=== PATIENT | female | born 1955 | race Caucasian/White ===

== ENCOUNTER 2018-01-10 12:27 | Inpatient (IN) ==
[2018-01-10 13:00] LABS: Bilirubin,Urine Negative (Negative); Blood,Urine Moderate (Negative); Clarity,Urine Cloudy (Clear); Color,Urine Yellow (Yellow); Glucose,Urine (UA) Normal (Normal); Ketones,Urine Trace mg/dL (Negative); Leukocyte Esterase,Urine Large (Negative); Nitrite,Urine Negative (Negative); Protein,Urine 100 mg/dL (Neg-Trace); Urobilinogen,Urine Normal (Normal)
[2018-01-10 13:02] LABS: Hyaline Casts,Urine None Seen per lpf (None-Few); RBC,Urine 0-3 per hpf (0-3); Squamous Epithelial Cell,Urine Many per lpf (None-Few)
[2018-01-10 13:16] LABS: Basophils # 0.1 K/mcL (0.0-0.2); Basophils % 0.3 %; Eosinophils % 0.1 %; Hematocrit 37.6 % (35.3-44.9); Hemoglobin 12.6 g/dL (11.5-15.4); Immature Granulocytes % 4.7 % (0-4); Lymphocytes # 0.3 K/mcL (0.6-4.6); Lymphocytes % 1.8 %; Mean Corpuscular HGB Conc 33.5 g/dL (31.6-35.5); Mean Corpuscular Hemoglobin 29.9 pg (28.0-33.3); Mean Corpuscular Volume 89.1 fL (83.0-100.0); Mean Platelet Volume 10.1 fL (9.4-12.4); Monocytes # 0.4 K/mcL (0.0-1.3); Monocytes % 2.3 %; Neutrophils # 16.9 K/mcL (1.6-8.9); Platelet Count 167 K/mcL (140-400); Red Blood Count 4.22 M/mcL (3.82-4.97); Red Cell Distribution Width 13.8 % (11.5-14.5); Segmented Neutrophils % 90.8 %
[2018-01-10 13:23] LABS: Bacteria,Urine Few per hpf (None-Few); WBC,Urine 30-50 per hpf (0-3)
[2018-01-10 14:08] LABS: Alanine Aminotransferase 18 Units/L (7-52); Albumin 3.9 g/dL (3.5-5.7); Albumin/Globulin Ratio 1.3 (1.1-2.2); Alkaline Phosphatase 103 Units/L (34-104); Aspartate Amino Transferase 30 Units/L (13-39); BUN/Creatinine Ratio 24 (6-26); Bilirubin,Direct 0.1 mg/dL (0.0-0.2); Bilirubin,Indirect 0.3 mg/dL (0.0-1.2); Bilirubin,Total 0.4 mg/dL (0.3-1.0); Blood Urea Nitrogen 45 mg/dL (8-23); Calcium 9.6 mg/dL (8.6-10.3); Carbon Dioxide 20 mEq/L (23-29); Chloride 99 mEq/L (98-107); Glucose 121 mg/dL (70-105); Lipase < 3 Units/L (11-82); Osmolality,Calculated 285 (280-300); Potassium 3.6 mEq/L (3.5-5.1); Sodium 131 mEq/L (136-145); Total Protein 6.9 g/dL (6.4-8.9); eGFR For African Americans 34 (> 60); eGFR For Non-African Americans 28 (> 60)
[2018-01-10] MEDS: 0.9 % Sodium Chloride 1,000 ML IVC SCH ×3 (16:48→20:21)
[2018-01-10] MEDS ORDERED: Piperacillin/Tazobactam 3.375 GM in 0.9 % Sodium Chloride Mini Bag 100 ML IVPB ONE (17:17)
--- NOTE | 2018-01-10 17:22 | Emergency Department Note ---
Disposition Clinical Impression: Ureteral stone, Acute kidney injury Sepsis Qualifiers: Sepsis type: sepsis due to unspecified organism Qualified Code(s): A41.9 - Sepsis, unspecified organism UTI (urinary tract infection) Qualifiers: Urinary tract infection type: site unspecified Hematuria presence: with hematuria Qualified Code(s): N39.0 - Urinary tract infection, site not specified Disposition: Admitted As Inpatient Condition: Fair Time of Disposition: 17:35 General Adult HPI - General Chief complaint: ED General Medical Stated complaint: Flank Pain Time Seen by Provider: 01/10/18 16:09 Source: patient Limitations: no limitations Nursing Notes Reviewed: Yes Vital Signs Reviewed: Yes - History of Present Illness HPI Narrative: Patient is a 62-year-old female that presents the emergency department with right-sided flank and abdominal pain. She states that this is been ongoing for the past 3 days. She states that she has had a history of kidney stones and she is 25 years old and has had a recent CAT scan that showed stones within her kidney. Patient states that the pain is been progressively getting worse. Patient reports that she has had a fever as high as 102. Reports that she has taken Tylenol. Patient does report that she feels like she has not been urinating as well. Patient states that she has had a history of kidney stones when she was younger and this feels just like when she has had a kidney stone in the past. Pain Scale: 2 - Related Data Home Medications Medication Instructions Recorded Confirmed Pravastatin Sodium [Pravachol] 20 mg PO HS 01/10/18 01/10/18 Sulfamethoxazole/Trimeth DS 1 tab PO BID 01/10/18 01/10/18 [Bactrim Ds] Allergies Allergy/AdvReac Type Severity Reaction Status Date / Time No Known Allergies Allergy Verified 01/10/18 17:32 All systems ED: reviewed and negative except as stated. Constitutional: Reports: fever Cardiovascular: Denies: chest pain Respiratory: Denies: dyspnea Gastrointestinal: Reports: abdominal pain, nausea Genitourinary: Reports: other (Decreased frequency). Denies: urgency, dysuria Musculoskeletal: Reports: back pain Past Medical History - Past Medical History Medical history: Reports: kidney stones Psychiatric history: Reports: no psych history - Social History Smoking Status: Current every day smoker Smokeless Tobacco Status: No Alcohol use: Reports: none Drug use: Reports: none Physical Exam - General Limitations: no limitations General appearance: alert, in no apparent distress - Head Head exam: atraumatic, normocephalic - Eye Eye exam: Present: normal appearance, EOMI - Neck Neck exam: Present: normal inspection, full ROM, trachea midline - Respiratory Respiratory exam: Present: normal lung sounds bilaterally. Absent: respiratory distress, wheezes - Cardiovascular Cardiovascular exam: Present: normal rhythm, tachycardia, normal heart sounds, + S1, +S2 - Abdominal Exam Abdominal exam: Present: soft, tenderness (Lower abdominal tenderness.), normal bowel sounds - Neurological Exam Neurological exam: Present: alert, oriented X3 - Psychiatric Psychiatric exam: Present: normal affect, normal mood - Skin Skin exam: Present: warm, dry, intact Course - Reevaluation(s) Reevaluation #1: I called and spoke with Dr. Walker the on-call urologist and he stated that he would call and talk to the OR to see if this patient could potentially go to the OR tonight for possible stenting Time: 17:22 Vital Signs Temperature 98.4 F 01/10/18 12:33 Pulse Rate 102 01/10/18 12:33 Respiratory Rate 18 01/10/18 12:33 Blood Pressure 92/63 01/10/18 12:33 O2 Sat by Pulse Oximetry 94 01/10/18 12:33 Temperature 98.4 F 01/10/18 12:33 Pulse Rate 102 01/10/18 12:33 Respiratory Rate 18 01/10/18 12:33 Blood Pressure 92/63 01/10/18 12:33 O2 Sat by Pulse Oximetry 94 01/10/18 12:33 Oxygen Delivery Oxygen Delivery Room Air Medical Decision Making - [facility] Narrative Medical decision making narrative: Due to the patient presenting with right-sided abdominal pain and flank pain with a history of kidney stones. We will obtain a CBC, BMP and blood cultures, urinalysis, urine cultures, lactic acid. The patient's CT scan showed a 9 mm stone in the right ureter. I called and spoke with Dr. Walker the on-call urologist and he stated that he would come in and see the patient here in the emergency Department likely take her to the OR for stent placement. The patient does have an elevated white count, was tachycardic and borderline hypotensive. Based on the patient's vital sign laboratory testing and having a source of infection at that this patient meets sepsis criteria and has been given a 30 mL/kg bolus and started on IV antibiotics. Patient will need to be admitted to the hospital for further evaluation and management. Called and spoke with the admitting hospitalist and they have accepted the patient to their service. The patient be admitted to the hospital after the patient goes to the OR with Dr. Walker. - Lab Data Lab results reviewed: Yes I reviewed the patient's lab results. Result diagrams: 01/10/18 12:56 01/10/18 12:56 Lab Results 01/10/18 01/10/18 01/10/18 Range/Units 12:53 12:56 12:56 WBC 18.6 H (4.3-11.1) K/mcL RBC 4.22 (3.82-4.97) M/mcL Hgb 12.6 (11.5-15.4) g/dL Hct 37.6 (35.3-44.9) % MCV 89.1 (83.0-100.0) fL MCH 29.9 (28.0-33.3) pg MCHC 33.5 (31.6-35.5) g/dL RDW 13.8 (11.5-14.5) % Plt Count 167 (140-400) K/mcL MPV 10.1 (9.4-12.4) fL Immature Gran % 4.7 H (0-4) % Seg Neutrophils % 90.8 % Lymphocytes % 1.8 % Monocytes % 2.3 % Eosinophils % 0.1 % Basophils % 0.3 % Neutrophils # 16.9 H (1.6-8.9) K/mcL Lymphocytes # 0.3 L (0.6-4.6) K/mcL Monocytes # 0.4 (0.0-1.3) K/mcL Eosinophils # 0.0 (0.0-0.6) K/mcL Basophils # 0.1 (0.0-0.2) K/mcL PT (9.4-12.1) Seconds INR Sodium 131 L (136-145) mEq/L Potassium 3.6 (3.5-5.1) mEq/L Chloride 99 (98-107) mEq/L Carbon Dioxide 20 L (23-29) mEq/L BUN 45 H (8-23) mg/dL Creatinine 1.84 H (0.60-1.20) mg/dL Est GFR ( Amer) 34 L (> 60) Est GFR (Non-Af Amer) 28 L (> 60) BUN/Creatinine Ratio 24 (6-26) Glucose 121 H (70-105) mg/dL Calculated Osmolality 285 (280-300) Lactic Acid (0.5-2.2) mmol/L Calcium 9.6 (8.6-10.3) mg/dL Total Bilirubin 0.4 (0.3-1.0) mg/dL Direct Bilirubin 0.1 (0.0-0.2) mg/dL Indirect Bilirubin 0.3 (0.0-1.2) mg/dL AST 30 (13-39) Units/L ALT 18 (7-52) Units/L Alkaline Phosphatase 103 (34-104) Units/L Troponin I (< 0.04) ng/mL Serum Total Protein 6.9 (6.4-8.9) g/dL Albumin 3.9 (3.5-5.7) g/dL Globulin 3.0 (2.4-3.5) g/dL Albumin/Globulin Ratio 1.3 (1.1-2.2) Lipase < 3 L (11-82) Units/L Urine Color Yellow (Yellow) Urine Clarity Cloudy A (Clear) Urine pH 6.0 (5.0-8.0) pH Units Ur Specific [place] 1.020 (1.010-1.025) Urine Protein 100 H (Neg-Trace) mg/dL Urine Glucose (UA) Normal (Normal) mg/dL Urine Ketones Trace H (Negative) mg/dL Urine Blood Moderate H (Negative) Urine Nitrite Negative (Negative) Urine Bilirubin Negative (Negative) Urine Urobilinogen Normal (Normal) mg/dL Ur Leukocyte Esterase Large H (Negative) Urine Microscopic RBC 0-3 (0-3) per hpf Urine Microscopic WBC 30-50 H (0-3) per hpf Ur Squamous Epith Cells Many H (None-Few) per lpf Urine Bacteria Few (None-Few) per hpf Hyaline Casts None Seen (None-Few) per lpf 01/10/18 01/10/18 01/10/18 Range/Units 17:06 17:06 17:06 WBC (4.3-11.1) K/mcL RBC (3.82-4.97) M/mcL Hgb (11.5-15.4) g/dL Hct (35.3-44.9) % MCV (83.0-100.0) fL MCH (28.0-33.3) pg MCHC (31.6-35.5) g/dL RDW (11.5-14.5) % Plt Count (140-400) K/mcL MPV (9.4-12.4) fL Immature Gran % (0-4) % Seg Neutrophils % % Lymphocytes % % Monocytes % % Eosinophils % % Basophils % % Neutrophils # (1.6-8.9) K/mcL Lymphocytes # (0.6-4.6) K/mcL Monocytes # (0.0-1.3) K/mcL Eosinophils # (0.0-0.6) K/mcL Basophils # (0.0-0.2) K/mcL PT 14.3 H (9.4-12.1) Seconds INR 1.3 Sodium (136-145) mEq/L Potassium (3.5-5.1) mEq/L Chloride (98-107) mEq/L Carbon Dioxide (23-29) mEq/L BUN (8-23) mg/dL Creatinine (0.60-1.20) mg/dL Est GFR ( Amer) (> 60) Est GFR (Non-Af Amer) (> 60) BUN/Creatinine Ratio (6-26) Glucose (70-105) mg/dL Calculated Osmolality (280-300) Lactic Acid 1.0 (0.5-2.2) mmol/L Calcium (8.6-10.3) mg/dL Total Bilirubin (0.3-1.0) mg/dL Direct Bilirubin (0.0-0.2) mg/dL Indirect Bilirubin (0.0-1.2) mg/dL AST (13-39) Units/L ALT (7-52) Units/L Alkaline Phosphatase (34-104) Units/L Troponin I 0.08 H* (< 0.04) ng/mL Serum Total Protein (6.4-8.9) g/dL Albumin (3.5-5.7) g/dL Globulin (2.4-3.5) g/dL Albumin/Globulin Ratio (1.1-2.2) Lipase (11-82) Units/L Urine Color (Yellow) Urine Clarity (Clear) Urine pH (5.0-8.0) pH Units Ur Specific [place] (1.010-1.025) Urine Protein (Neg-Trace) mg/dL Urine Glucose (UA) (Normal) mg/dL Urine Ketones (Negative) mg/dL Urine Blood (Negative) Urine Nitrite (Negative) Urine Bilirubin (Negative) Urine Urobilinogen (Normal) mg/dL Ur Leukocyte Esterase (Negative) Urine Microscopic RBC (0-3) per hpf Urine Microscopic WBC (0-3) per hpf Ur Squamous Epith Cells (None-Few) per lpf Urine Bacteria (None-Few) per hpf Hyaline Casts (None-Few) per lpf - Radiology Data Radiology results reviewed: Yes I reviewed the patient's radiology results. Abdomen/Pelvis CT 01/10/18 16:14 IMPRESSION: 1. Moderate right hydronephrosis with multiple calculi measuring up to 9 mm in diameter obstructing the proximal right ureter. 2. Bilateral nonobstructing nephrolithiasis. 3. Diverticulosis. D/ / Jorge Mariee / Jorge Mariee Interpreting Provider: Jorge Mariee - EKG Data EKG #1 EKG attestation: Yes I reviewed and interpreted this EKG. EKG results narrative: EKG shows a sinus rhythm at a rate of 92 bpm, MA interval 152, QRS duration of 95, QTC of 403 with a normal axis. No evidence of STEMI noted on EKG. There is no previous EKG for comparison. Critical Care Time Critical Care Time: Yes Total Critical Care Time: 35 Attestation: The high probability of a clinically significant, sudden or life threatening deterioration of the [] system(s) required my full and direct attention, intervention and personal management. The aggregate critical care time was [35] minutes. This time is in addition to time spent performing reported procedures but includes the following: [x] Data Review and interpretation [x] Patient assessment and monitoring of vital signs [x] Documentation [x] Medication orders and management Attestation Statement - Attestation Attestation: I examined this patient and my medical decision-making was reviewed with the Resident Physician, Dr. walker. I agree with the documented findings, disposition and treatment plan as described except to the extent set forth below. Patient is 62-year-old white female presents to the emergency Department with complaints of fever associated with flank pain lower abdominal pain and bloating nausea vomiting. Patient has known history of frequent kidney stones and does see urology. Patient had no recent urologic intervention. On arrival patient with tachycardia, hypotension. Patient was maintained is alert and sepsis protocol was initiated on arrival. I agree with patient's physical exam findings as documented. Patient's lab evaluation shows elevated white count at 18.6 with left shift, patient with some mild renal insufficiency likely prerenal, and has evidence of UTI on urinalysis as well as a large right proximal ureteral stone causing moderate Olga. Patient's receiving her 30 mL/kg bolus, antibiotics and been initiated, cultures have been drawn and sent and case was discussed with urology who plans to take the patient to the OR in the next hour for stone retrieval. Patient with improved vitals after 500 mL of fluid with a heart rate of 94 blood pressure 114/85. Patient was also given pain control and antiemetics. Patient clinically improved at this time antibiotics initiated in planing to go to the OR with urology. Patient was discussed with the hospitalist who will also be involved in the care of the patient postoperatively.
[2018-01-10] MEDS ORDERED: Ondansetron 4 MG/2 ML VIAL IVP ONE (17:23)
[2018-01-10] MEDS ORDERED: *HR* FentaNYL (PF) 100 MCG/2 ML VIAL IVP ONE (17:23)
[2018-01-10 17:36] LABS: INR 1.3; Prothrombin Time 14.3 Seconds (9.4-12.1)
[2018-01-10] MEDS ORDERED: *HR* FentaNYL (PF) 100 MCG/2 ML VIAL ONE (17:36)
[2018-01-10] MEDS ORDERED: Ondansetron 4 MG/2 ML VIAL ONE (17:37)
[2018-01-10] MEDS ORDERED: *HR* Midazolam HCl 2 MG/2 ML VIAL ONE (17:37)
[2018-01-10] MEDS ORDERED: *HR* Propofol 200 MG/20 ML VIAL IVP ONE ×2 (17:37→18:06)
[2018-01-10] MEDS ORDERED: Dexamethasone 4 MG/ML VIAL ONE (17:37)
[2018-01-10] MEDS ORDERED: Lidocaine -MPF 2% 2 ML VIAL ONE (17:37)
[2018-01-10] MEDS ORDERED: Isovue-300 50 ML VIAL IVP ONE (18:00)
--- NOTE | 2018-01-10 18:07 | Anesthesia Evaluation PreOp ---
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 BRANDY on CRF, pyelonephritis,), Other ( Nausea, vomiting for the last 48 hrs) Anesthesia History: No Prior Anesthetic Complications, Past Anesthesia ( Hysterectomy) Alcohol Use: none Drug use: none Medications and Allergies Pravastatin Sodium [Pravachol] 20 mg PO HS 01/10/18 [History] Sulfamethoxazole/Trimeth DS [Bactrim Ds] 1 tab PO BID 01/10/18 [History] 3 Allergy/AdvReac Type Severity Reaction Status Date / Time No Known Allergies Allergy Verified 01/10/18 17:32 - Meds/Allergy Pre-op Review Medications Reviewed: Yes Allergies Reviewed: Yes Beta Blockers on Current Med List: No Anesthesia Results - Labs 01/10/18 12:56 01/10/18 12:56 Anesthesia Exam O2 Sat Height 1.68 m Weight 73.482 kg BMI 26 Vital Signs Temp Pulse Resp BP Pulse Ox 98.4 F 102 18 92/63 94 01/10/18 12:33 01/10/18 12:33 01/10/18 12:33 01/10/18 12:33 01/10/18 12:33 NPO (# of Hours): > 48 hrs - HEENT Mallampati: I Teeth: Normal - HEMMER CHAINSTITCH HEMMER CHAINSTITCH Motor: Deficit RUE, Deficit LUE, Deficit RLE, Deficit LLE HEMMER CHAINSTITCH Sensory: Deficit: RUE, LUE, RLE, LLE - Cardiac Rhythm: Regular - Pulmonary Breath Sounds: bilateral Rhonchi Anesthesia Assess/Plan ASA Score: 3 Modified Nahomy Scale for Level of Consciousness: Cooperative, oriented, and tranquil Anesthetic Plan: General, MAC Monitoring Plan: Standard Monitors Recovery Plan: PACU Anes Supervising Prov Stmt: Patient informed and consented. Risks, benefits, and alternatives discussed. Patient wishes to proceed.
[2018-01-10] MEDS ORDERED: Acetaminophen IV 1,000 MG/100 ML INFUS..BTL ONE (18:59)
--- NOTE | 2018-01-10 19:09 | Urology - Consult Note ---
Date of Encounter: 01/10/18 Time of Encounter: 19:07 - Assessment and Plan (1) Acute kidney injury Current Visit: Yes Status: Acute Assessment and plan: Likely from the obstructing stone. Should resolve with stent placement and hydration. (2) Sepsis Current Visit: Yes Status: Acute Assessment and plan: Likely sepsis based on her presentation. Will be admitted to the medicine service after stent placement Qualifiers: Sepsis type: sepsis due to unspecified organism Qualified Code(s): A41.9 - Sepsis, unspecified organism (3) Ureteral stone Current Visit: Yes Status: Acute Assessment and plan: Requires ureteral stent placement. This will be performed tonight. Unable to perform in situ stone extraction because of infection. Urology CN:HPI Consult date: 01/10/18 Reason for consult Urology: Hydronephrosis History of present illness: Called from the emergency room. 62-year-old female history of stones. Fever of 102 at home. Severe right flank pain. CT scan with a 9 mm proximal ureteral stone. Hydronephrosis. White cell count 18,000. Creatinine 1.8 Past Med Surg Social Fam HX - Past Medical History Medical history: kidney stones Psychiatric history: no psych history - Social History Smoking Status: Current every day smoker Smokeless Tobacco Status: No Alcohol use: none Drug use: none Medications and Allergies Pravastatin Sodium [Pravachol] 20 mg PO HS 01/10/18 [History] Sulfamethoxazole/Trimeth DS [Bactrim Ds] 1 tab PO BID 01/10/18 [History] 3 Allergy/AdvReac Type Severity Reaction Status Date / Time No Known Allergies Allergy Verified 01/10/18 17:32 Review of Systems - Constitutional chills, fatigue, fever(s), malaise - Cardiovascular no chest pain - Respiratory no cough - Gastrointestinal abdominal pain, nausea, vomiting - Genitourinary Genitourinary: flank pain - Musculoskeletal back pain - Integumentary no erythema - Neurological no confusion - Psychiatric no anxiety Exam Initial Vital Signs Temp Pulse Resp BP Pulse Ox 98.4 F 102 18 92/63 94 01/10/18 12:33 01/10/18 12:33 01/10/18 12:33 01/10/18 12:33 01/10/18 12:33 - General physical appearance Present: no distress, moderate pain - Eyes Present: PERRL, conjunctiva is clear - ENT Present: normal nares, no hearing loss - Neck Present: no masses, no lymphadenopathy - Respiratory Present: normal respiratory effort - Cardiovascular Cardiovascular exam IM: tachycardia - Abdomen Abdomen: Present: soft, suprapubic tenderness. Absent: distended - Integumentary Present: no rash - Neurologic Present: normal coordination. Absent: disoriented, confused Urology Results - Labs 01/10/18 12:56 01/10/18 12:56 Abnormal lab results WBC 18.6 K/mcL (4.3-11.1) H 01/10/18 12:56 Immature Gran % 4.7 % (0-4) H 01/10/18 12:56 Neutrophils # 16.9 K/mcL (1.6-8.9) H 01/10/18 12:56 Lymphocytes # 0.3 K/mcL (0.6-4.6) L 01/10/18 12:56 PT 14.3 Seconds (9.4-12.1) H 01/10/18 17:06 Sodium 131 mEq/L (136-145) L 01/10/18 12:56 Carbon Dioxide 20 mEq/L (23-29) L 01/10/18 12:56 BUN 45 mg/dL (8-23) H 01/10/18 12:56 Creatinine 1.84 mg/dL (0.60-1.20) H 01/10/18 12:56 Est GFR ( Amer) 34 (> 60) L 01/10/18 12:56 Est GFR (Non-Af Amer) 28 (> 60) L 01/10/18 12:56 Glucose 121 mg/dL (70-105) H 01/10/18 12:56 Troponin I 0.08 ng/mL (< 0.04) H* 01/10/18 17:06 Lipase < 3 Units/L (11-82) L 01/10/18 12:56 Urine Clarity Cloudy (Clear) A 01/10/18 12:53 Urine Protein 100 mg/dL (Neg-Trace) H 01/10/18 12:53 Urine Ketones Trace mg/dL (Negative) H 01/10/18 12:53 Urine Blood Moderate (Negative) H 01/10/18 12:53 Ur Leukocyte Esterase Large (Negative) H 01/10/18 12:53 Urine Microscopic WBC 30-50 per hpf (0-3) H 01/10/18 12:53 Ur Squamous Epith Cells Many per lpf (None-Few) H 01/10/18 12:53 All other labs normal. Consult Discharge Plan - Plan Referrals: Radha Nguyen, [facility] [Primary Care Provider] -
[2018-01-10] MEDS ORDERED: OXYCODONE Oral CONC 10 MG/0.5 ML ORAL.SYG SL PRN (19:12)
[2018-01-10] MEDS ORDERED: *HR* HYDROcodone/Acet 5/325 mg TABLET PO PRN (19:12)
[2018-01-10] MEDS ORDERED: *HR* Promethazine 25 MG/ML VIAL IVP PRN (19:12)
[2018-01-10] MEDS ORDERED: Naloxone 0.4 MG/ML INJ IVP PRN ×2 (19:12→19:51)
[2018-01-10] MEDS ORDERED: Ondansetron 4 MG/2 ML VIAL IVP PRN (19:12)
--- NOTE | 2018-01-10 19:12 | Operative Note ---
Date of procedure: 01/10/18 Pre-op diagnosis: 9 mm proximal ureteral stone with hydronephrosis and likely infection Post-op diagnosis: same Procedure: Cystoscopy right retrograde pyelogram and right ureteral stent placement. Anesthesia: MAC Surgeon: Frederic Walker Was there an assistant golf coach present: No Estimated blood loss (cc): 0 Specimen: None Condition: stable Disposition: PACU Procedure in Detail: PROCEDURE IN DETAIL: Patient was taken back to the operating room, positioned supine on the operating table. Anesthesia was applied without complication. They were moved into dorsal lithotomy. Careful attention was maintained to cushion all pressure points for patient's safety. They were prepped and draped in sterile fashion. Time-out was performed with the proper patient and procedure. A 21-Togolese rigid cystoscope was inserted into the bladder without difficulty. 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 The right ureteral orifice was cannulated using a 5- Togolese ureteral Catheter and a retrograde pyelogram was performed using Isovue. A filling defect was identified which corresponded to the stone. The stone seemed quite impacted At that point, a zip wire was placed through the 5-Togolese and confirmed in the renal pelvis with fluoroscopy. A 4.8 x 26 ureteral stent was placed over the zip wire under fluoroscopy without complication. Significant purulent material returned from the kidney. I placed an indwelling catheter D and the procedure. No dangle string was left on the stent. In recovery the patient was somewhat hypotensive at 90/40. Temperature 101. 1 g of Tylenol was given and IV fluids. I have contacted the hospitalist service to determine proper bed placement
[2018-01-10] MEDS ORDERED: Ringers Solution, Lactated 1,000 ML ONE (19:39)
--- NOTE | 2018-01-10 19:46 | Internal Med History&Physical ---
Date of Encounter: 01/10/18 Time of Encounter: 19:42 Assessment and Plan (1) Leukocytosis Current visit: Yes Status: Acute Due to sepsis Qualifiers: Leukocytosis type: bandemia Qualified Code(s): D72.825 - Bandemia (2) Elevated troponin Current visit: Yes Status: Acute Patient denies chest pain with transient troponin and obtain 2-D echo in a.m. (3) Sepsis Current visit: Yes Status: Acute Sepsis from urinary tract infection and kidney stone has elevated white count fever will sendt for lactic acid Qualifiers: Sepsis type: sepsis due to unspecified organism Qualified Code(s): A41.9 - Sepsis, unspecified organism (4) Ureteral stone Current visit: Yes Status: Acute Right ureter stone status post cystoscopy and stent placement DR Walker reports some pus was extracted (5) UTI (urinary tract infection) Current visit: Yes Status: Acute Patient has been given vancomycin will continue Zosyn as well Qualifiers: Urinary tract infection type: site unspecified Hematuria presence: with hematuria Qualified Code(s): N39.0 - Urinary tract infection, site not specified; R31.9 - Hematuria, unspecified; R31.9 - Hematuria, unspecified (6) Acute kidney injury Current visit: Yes Status: Acute We will start on IV hydration and monitor Internal Medicine - H&P: HPI Chief complaint: right flank pain Admitted From: Emergency Dept Plans for Post Hospital Care: Home History of present illness: Ms. Nguyen is a 62 year old female Patient with no significant medical problem except for kidney stone and smoking history patient presented emergency room with right flank pain and abdominal pain for 3 days fever [address] of the abdomen and pelvis shows 9 mm stone in the right ureter . Dr. Walker was consulted she was taken to the operating room underwent cystoscopy with stent placement. Patient returned to the recovery room blood pressure was 88. systolic but noted blood pressure in the ER was 92/63 I saw patient in recovery room she is awake , alert warm , not cold or clammy able to answer questions normal saline bolus is in progress patient will be sent to [address] [place] [address] . Denies any chest pain no shortness of breath. Past Med Surg Social Fam HX - Past Medical History Medical history: kidney stones Psychiatric history: no psych history - Social History Smoking Status: Current every day smoker Smokeless Tobacco Status: No Alcohol use: none Drug use: none Internal Medicine - H&P: Meds Pravastatin Sodium [Pravachol] 20 mg PO HS 01/10/18 [History] Sulfamethoxazole/Trimeth DS [Bactrim Ds] 1 tab PO BID 01/10/18 [History] 3 Allergy/AdvReac Type Severity Reaction Status Date / Time No Known Allergies Allergy Verified 01/10/18 17:32 All Systems PM: A 10-system review of systems was performed and is negative for pertinent findings except as documented above in the HPI. - Constitutional Constitutional: no chills, no fever(s), no night sweats - EENT Eyes: no change in vision, no discharge, no pain, no photophobia Ears: no ear discharge, no ear pain, no tinnitus Nose, mouth and throat: no dysphagia, no nasal discharge, no neck pain, no sore throat - Cardiovascular Cardiovascular ROS IM: no chest pain, no diaphoresis, no dyspnea, no lightheadedness, no palpitations, no syncope - Respiratory Respiratory: no cough, no dyspnea, no wheezing, no excessive phlegm production - Gastrointestinal Gastrointestinal: abdominal pain - Constitutional Vitals: Temp Pulse Resp BP Pulse Ox 100.7 F H 80 18 88/43 97 01/10/18 19:08 01/10/18 19:28 01/10/18 19:28 01/10/18 19:28 01/10/18 19:28 - Head Head exam: Present: atraumatic, normocephalic - Eye Eye exam: Present: PERRL, conjuntiva pink, sclera anicteric Pupils: Present: PERRL - Respiratory Respiratory exam: Present: CTAB. Absent: accessory muscle use, rales, rhonchi, wheezes - Cardiovascular Cardiovascular exam: Present: RRR, +S1, +S2. Absent: diastolic murmur, gallop, rubs, systolic murmur - GI/Abdominal GI/Abdominal exam: Present: normal bowel sounds, soft, no peritoneal signs. Absent: distended, tenderness - Extremities Exam Extremities exam: Present: warm, radial pulses palpable and symmetrical. Absent : calf tenderness, cyanotic, pedal edema Internal Med - H&P Results - Labs CBC & Chem 7: 01/10/18 12:56 01/10/18 12:56
[2018-01-10] MEDS ORDERED: 0.9 % Sodium Chloride 1,000 ML IVC SCH (20:00)
--- NOTE | 2018-01-10 20:51 | Anesthesia Evaluation Post Op ---
Date of Encounter: 01/10/18 Time of Encounter: 20:50 - Vital Signs Vital Signs: Vital Signs/O2 Sat, Most Current Temp Pulse Resp BP Pulse Ox 98.5 F 81 18 101/54 92 01/10/18 20:50 01/10/18 20:50 01/10/18 20:50 01/10/18 20:50 01/10/18 20:50 - Lungs Lungs: Clear Ascult./Percussion - Airway Airway: Non-obstructed - Cardiovascular Regular Rate - Mental Status Mental Status: Alert & Oriented, Answers Appropriately - Pain Pain Scale: 0 Pain Scale used: Numeric (1 - 10) - Nausea Vomiting Nausea Vomiting: Not Present - Hydration Hydration: NPO - Discharge PostOp Status: Discharge Patient to home
[2018-01-10] MEDS: traMADol 50 MG TABLET PO PRN (21:15)
[2018-01-11] MEDS ORDERED: Piperacillin/Tazobactam 3.375 GM in 0.9 % Sodium Chloride Mini Bag 100 ML IVPB SCH (02:00)
[2018-01-11] MEDS: 0.9 % Sodium Chloride 1,000 ML IVC SCH ×2 (02:56→08:21)
[2018-01-11 03:43] LABS: Basophils % 0.1 %; Immature Granulocytes % 4.3 % (0-4); Lymphocytes # 0.5 K/mcL (0.6-4.6); Lymphocytes % 3.9 %; Mean Corpuscular HGB Conc 33.1 g/dL (31.6-35.5); Mean Corpuscular Hemoglobin 29.8 pg (28.0-33.3); Mean Corpuscular Volume 89.9 fL (83.0-100.0); Mean Platelet Volume 10.5 fL (9.4-12.4); Monocytes # 0.3 K/mcL (0.0-1.3); Monocytes % 2.4 %; Neutrophils # 11.6 K/mcL (1.6-8.9); Platelet Count 136 K/mcL (140-400); Red Blood Count 3.56 M/mcL (3.82-4.97); Red Cell Distribution Width 13.9 % (11.5-14.5); Segmented Neutrophils % 89.3 %
[2018-01-11 03:45] LABS: Hemoglobin 10.6 g/dL (11.5-15.4)
[2018-01-11 04:05] LABS: Albumin/Globulin Ratio 1.2 (1.1-2.2); Bilirubin,Total 0.3 mg/dL (0.3-1.0); Calcium 8.4 mg/dL (8.6-10.3); Globulin 2.5 g/dL (2.4-3.5); Magnesium 1.8 mg/dL (1.6-2.6); Total Protein 5.5 g/dL (6.4-8.9)
[2018-01-11] MEDS: cefTRIAXone 1,000 MG in Water for inj. (sterile) 20 ML 10 ML IVP SCH (08:21)
[2018-01-11] MEDS ORDERED: Aminoglycoside Consult 1 EACH MC ONE (09:34)
[2018-01-11 10:43] LABS: Enterococcus by PCR Not Detected (Not Detect); Staphylococcus aureus by PCR Not Detected (Not Detect); Streptococcus agalactiae(B)PCR Not Detected (Not Detect); Streptococcus by PCR Not Detected (Not Detect); Streptococcus pneumoniae PCR Not Detected (Not Detect); blaKPC Carbapenem-Resist Gene Not Detected (Not Detect)
[2018-01-11 10:44] LABS: Acinetobacter baumannii by PCR Not Detected (Not Detect); Candida albicans by PCR Not Detected (Not Detect); Candida glabrata by PCR Not Detected (Not Detect); Candida krusei by PCR Not Detected (Not Detect); Candida parapsilosis by PCR Not Detected (Not Detect); Candida tropicalis by PCR Not Detected (Not Detect); Escherichia coli by PCR ***DETECTED*** (Not Detect); Klebsiella oxytoca by PCR Not Detected (Not Detect); Klebsiella pneumoniae by PCR Not Detected (Not Detect); Pseudomonas aeruginosa by PCR Not Detected (Not Detect); Serratia marcescens by PCR Not Detected (Not Detect); Streptococcus pyogenes (A) PCR Not Detected (Not Detect)
--- NOTE | 2018-01-11 16:44 | Internal Med Progress Note ---
Date of Encounter: 01/11/18 Time of Encounter: 09:20 - Assessment and plan (1) Bacteremia due to Escherichia coli Current Visit: Yes Status: Acute Assessment and plan: Secondary to UTI. One out of one initial blood cultures grew Escherichia coli, follow up final cultures. Discontinue vancomycin and Zosyn, continue IV Rocephin. Follow up urine cultures. (2) Acute kidney injury Current Visit: Yes Status: Acute Assessment and plan: Secondary to right ureteral stone. Status post ureteral stent placement. Serum creatinine noted to be improving, 1.18 today. Continue IV hydration, avoid nephrotoxic agents. (3) Elevated troponin Current Visit: Yes Status: Acute Assessment and plan: Noted to have mild troponin leak, likely related to demand ischemia and sepsis. Continue telemetry monitoring. (4) Sepsis Current Visit: Yes Status: Acute Assessment and plan: Presents with leukocytosis, fever and tachycardia secondary to UTI. Lactic acid noted to be normal. Continue IV antibiotics, follow up cultures. Qualifiers: Sepsis type: Escherichia coli Qualified Code(s): A41.51 - Sepsis due to Escherichia coli [E. coli] (5) UTI (urinary tract infection) Current Visit: Yes Status: Acute Assessment and plan: Urinalysis suggestive of UTI, follow-up urine culture. Continue IV Rocephin. Per urology notes, some pus was aspirated during ureteral stent placement. Qualifiers: Urinary tract infection type: site unspecified Hematuria presence: with hematuria Qualified Code(s): N39.0 - Urinary tract infection, site not specified; R31.9 - Hematuria, unspecified; R31.9 - Hematuria, unspecified (6) Ureteral stone Current Visit: Yes Status: Acute Assessment and plan: CT abdomen/pelvis showed multiple proximal right ureteral stones up to 9 mm, with hydroureteronephrosis. Urology on board. Status post right ureteral stent placement. (7) Tobacco abuse Current Visit: Yes Status: Chronic - Time Spent With Patient Total time spent is greater than 50% in coordination of care (as documented) at patient's floor/unit and/or counseling patient: - Subjective Interval history: Reports feeling a lot better; continues to have some right flank and groin pain and nausea; had low grade fever after procedure last night; - Constitutional Vitals: Temp Pulse Resp BP Pulse Ox 98.4 F 55 16 124/78 96 01/11/18 15:15 01/11/18 15:15 01/11/18 15:15 01/11/18 15:15 01/11/18 15:15 General appearance: Present: A&O X 3, answers questions appropriately - Respiratory Respiratory exam: Present: CTAB. Absent: accessory muscle use, rales, rhonchi, wheezes - Cardiovascular Cardiovascular exam: Present: RRR, +S1, +S2. Absent: diastolic murmur, gallop, rubs, systolic murmur - GI/Abdominal GI/Abdominal exam: Present: normal bowel sounds, soft, no peritoneal signs. Absent: distended, tenderness - Extremities Exam Extremities exam: Present: full ROM, warm, radial pulses palpable and symmetrical. Absent: calf tenderness, cyanotic, pedal edema - Back Exam Back exam: Present: CVA tenderness (R) - Neurological Exam Neurological exam: Present: CN II-XII intact, oriented X3, no focal deficits. Absent: pronater drift, facial droop, speech deficit Internal Medicine: Result - Labs CBC & Chem 7: 01/11/18 03:26 01/11/18 03:26 Labs: Short CBC 01/11/18 Range/Units 03:26 WBC 13.0 H (4.3-11.1) K/mcL Hgb 10.6 L D (11.5-15.4) g/dL Hct 32.0 L (35.3-44.9) % Plt Count 136 L (140-400) K/mcL Neutrophils # 11.6 H (1.6-8.9) K/mcL BMP 01/11/18 03:26 Sodium 135 L Potassium 4.0 Chloride 110 H Carbon Dioxide 18 L BUN 35 H Creatinine 1.18 Glucose 162 H Calcium 8.4 L Cardiac Enzymes 01/10/18 01/11/18 01/11/18 Range/Units 20:57 03:26 09:14 Troponin I < 0.03 < 0.03 0.05 H* (< 0.04) ng/mL Liver Function 01/11/18 Range/Units 03:26 Total Bilirubin 0.3 (0.3-1.0) mg/dL AST 29 (13-39) Units/L ALT 26 (7-52) Units/L Alkaline Phosphatase 165 H (34-104) Units/L Albumin 3.0 L (3.5-5.7) g/dL - ABG Interpretation ABG results: PT/INR, D-dimer PT 14.3 Seconds (9.4-12.1) H 01/10/18 17:06 - VTE Documentation of Mechanical Device: Intermittent pneumatic compression device Consult Discharge Plan - Plan Referrals: Radha Nguyen CNP [Primary Care Provider] - 01/23/18 2:15 pm (Please be at office at 2:00 pm)
[2018-01-11] MEDS: traMADol 50 MG TABLET PO PRN (22:23)
[2018-01-12 04:56] LABS: Basophils % 0.1 %; Eosinophils % 0.2 %; Hematocrit 30.8 % (35.3-44.9); Hemoglobin 10.6 g/dL (11.5-15.4); Immature Granulocytes % 0.8 % (0-4); Lymphocytes % 5.7 %; Mean Corpuscular HGB Conc 34.4 g/dL (31.6-35.5); Mean Corpuscular Hemoglobin 30.5 pg (28.0-33.3); Mean Corpuscular Volume 88.8 fL (83.0-100.0); Mean Platelet Volume 10.6 fL (9.4-12.4); Monocytes % 5.6 %; Neutrophils # 15.2 K/mcL (1.6-8.9); Platelet Count 162 K/mcL (140-400); Red Blood Count 3.47 M/mcL (3.82-4.97); Segmented Neutrophils % 87.6 %
[2018-01-12 05:13] LABS: BUN/Creatinine Ratio 37 (6-26); Blood Urea Nitrogen 29 mg/dL (8-23); Calcium 8.7 mg/dL (8.6-10.3); Carbon Dioxide 20 mEq/L (23-29); Chloride 111 mEq/L (98-107); Glucose 149 mg/dL (70-105); Osmolality,Calculated 291 (280-300); Potassium 3.9 mEq/L (3.5-5.1); Sodium 136 mEq/L (136-145); eGFR For African Americans > 60 (> 60); eGFR For Non-African Americans > 60 (> 60)
--- NOTE | 2018-01-12 07:18 | Urology Progress Note ---
Date of Encounter: 01/12/18 Time of Encounter: 07:16 - Assessment and Plan (1) Acute kidney injury Current Visit: Yes Status: Acute Assessment and plan: improved (2) Sepsis Current Visit: Yes Status: Acute Assessment and plan: blood cultures +. final culture pending. Qualifiers: Sepsis type: Escherichia coli Qualified Code(s): A41.51 - Sepsis due to Escherichia coli [E. coli] (3) Ureteral stone Current Visit: Yes Status: Acute Assessment and plan: stent is place. will need outpatient surgery to treat stone. will remove cath. Progress Note Subjective: feels better Narrative: pt still with cath discomfort. felling better. Objective Initial Vital Signs Temp Pulse Resp BP Pulse Ox 98.4 F 102 18 92/63 94 01/10/18 12:33 01/10/18 12:33 01/10/18 12:33 01/10/18 12:33 01/10/18 12:33 - General physical appearance Present: no distress - Additional Exam urine is clear - Labs 01/12/18 04:25 01/12/18 04:25 Diabetes panel 01/12/18 Range/Units 04:25 Sodium 136 (136-145) mEq/L Potassium 3.9 (3.5-5.1) mEq/L Chloride 111 H (98-107) mEq/L Carbon Dioxide 20 L (23-29) mEq/L BUN 29 H (8-23) mg/dL Creatinine 0.78 (0.60-1.20) mg/dL Glucose 149 H (70-105) mg/dL Calcium 8.7 (8.6-10.3) mg/dL Calcium panel 01/12/18 Range/Units 04:25 Calcium 8.7 (8.6-10.3) mg/dL Pituitary panel 01/12/18 Range/Units 04:25 Sodium 136 (136-145) mEq/L Potassium 3.9 (3.5-5.1) mEq/L Chloride 111 H (98-107) mEq/L Carbon Dioxide 20 L (23-29) mEq/L BUN 29 H (8-23) mg/dL Creatinine 0.78 (0.60-1.20) mg/dL Glucose 149 H (70-105) mg/dL Calcium 8.7 (8.6-10.3) mg/dL Adrenal panel 01/12/18 Range/Units 04:25 Sodium 136 (136-145) mEq/L Potassium 3.9 (3.5-5.1) mEq/L Chloride 111 H (98-107) mEq/L Carbon Dioxide 20 L (23-29) mEq/L BUN 29 H (8-23) mg/dL Creatinine 0.78 (0.60-1.20) mg/dL Glucose 149 H (70-105) mg/dL Calcium 8.7 (8.6-10.3) mg/dL - VTE Documentation of Mechanical Device: Intermittent pneumatic compression device Consult Discharge Plan - Plan Referrals: Radha Nguyen CNP [Primary Care Provider] - 01/23/18 2:15 pm (Please be at office at 2:00 pm)
[2018-01-12] MEDS: cefTRIAXone 1,000 MG in Water for inj. (sterile) 20 ML 10 ML IVP SCH (07:52)
--- NOTE | 2018-01-12 15:50 | Electrocardiograph Report ---
[place] [address] Test Date: 2018-01-10 Pat Name: Yue Nguyen Department: 103 Room: 07 Gender: F [employer]: : 1955 Requested By: [id number] Order Number: [id number] Reading MD: Dangelo Morgan Measurements Intervals [place] Rate: 92 P: 70 CT: 152 QRS: 35 QRSD: 95 T: 52 QT: 354 QTc: 403 Interpretive Statements SINUS RHYTHM INCOMPLETE RIGHT BUNDLE BRANCH BLOCK Electronically Signed On 01-12-2018 15:49:15 EDT by Dangelo Morgan
--- NOTE | 2018-01-12 16:49 | Internal Med Progress Note ---
Date of Encounter: 01/12/18 Time of Encounter: 10:10 - Assessment and plan (1) Bacteremia due to Escherichia coli Current Visit: Yes Status: Acute Assessment and plan: Secondary to UTI. 2/2 initial blood cultures grew Escherichia coli, follow up sensitivities. continue IV Rocephin. Follow up urine cultures. (2) Acute kidney injury Current Visit: Yes Status: Resolved Assessment and plan: Secondary to right ureteral stone. Status post ureteral stent placement. Serum creatinine improved. avoid nephrotoxic agents. (3) Elevated troponin Current Visit: Yes Status: Acute Assessment and plan: Noted to have mild troponin leak, likely related to demand ischemia and sepsis. Continue telemetry monitoring. (4) Sepsis Current Visit: Yes Status: Acute Assessment and plan: Presents with leukocytosis, fever and tachycardia secondary to UTI. Lactic acid noted to be normal. Continue IV antibiotics, follow up cultures. Qualifiers: Sepsis type: Escherichia coli Qualified Code(s): A41.51 - Sepsis due to Escherichia coli [E. coli] (5) UTI (urinary tract infection) Current Visit: Yes Status: Acute Assessment and plan: Urinalysis suggestive of UTI, follow-up urine culture. Continue IV Rocephin. Per urology notes, some pus was aspirated during ureteral stent placement. Qualifiers: Urinary tract infection type: site unspecified Hematuria presence: with hematuria Qualified Code(s): N39.0 - Urinary tract infection, site not specified; R31.9 - Hematuria, unspecified; R31.9 - Hematuria, unspecified (6) Ureteral stone Current Visit: Yes Status: Acute Assessment and plan: CT abdomen/pelvis showed multiple proximal right ureteral stones up to 9 mm, with hydroureteronephrosis. Urology on board. Status post right ureteral stent placement. (7) Tobacco abuse Current Visit: Yes Status: Chronic - Time Spent With Patient Total time spent is greater than 50% in coordination of care (as documented) at patient's floor/unit and/or counseling patient: - Subjective Interval history: Improved nausea, abdominal and flank pain. Reports constipation. No fever, chills, vomiting, chest pain or dyspnea. Able to ambulate independently. - Constitutional Vitals: Temp Pulse Resp BP Pulse Ox 97.8 F 69 16 112/73 97 01/12/18 15:58 01/12/18 15:58 01/12/18 15:58 01/12/18 15:58 01/12/18 15:58 General appearance: Present: A&O X 3, answers questions appropriately - Respiratory Respiratory exam: Present: CTAB. Absent: accessory muscle use, rales, rhonchi, wheezes - Cardiovascular Cardiovascular exam: Present: RRR, +S1, +S2. Absent: diastolic murmur, gallop, rubs, systolic murmur - GI/Abdominal GI/Abdominal exam: Present: normal bowel sounds, soft, no peritoneal signs. Absent: distended, tenderness Internal Medicine: Result - Labs CBC & Chem 7: 01/12/18 04:25 01/12/18 04:25 Labs: Short CBC 01/12/18 Range/Units 04:25 WBC 17.4 H (4.3-11.1) K/mcL Hgb 10.6 L (11.5-15.4) g/dL Hct 30.8 L (35.3-44.9) % Plt Count 162 (140-400) K/mcL Neutrophils # 15.2 H (1.6-8.9) K/mcL BMP 01/12/18 04:25 Sodium 136 Potassium 3.9 Chloride 111 H Carbon Dioxide 20 L BUN 29 H Creatinine 0.78 Glucose 149 H Calcium 8.7 - ABG Interpretation ABG results: PT/INR, D-dimer PT 14.3 Seconds (9.4-12.1) H 01/10/18 17:06 - VTE Documentation of Mechanical Device: Intermittent pneumatic compression device Consult Discharge Plan - Plan Referrals: Radha Nguyen CNP [Primary Care Provider] - 01/23/18 2:15 pm (Please be at office at 2:00 pm)
[2018-01-12] MEDS ORDERED: cefTRIAXone 2,000 MG in Water for inj. (sterile) 20 ML 20 ML IVP SCH (18:00)
[2018-01-13] MEDS: OXYCODONE Oral CONC 10 MG/0.5 ML ORAL.SYG SL PRN ×2 (02:16→16:33)
[2018-01-13 03:28] LABS: Basophils % 0.2 %; Eosinophils # 0.1 K/mcL (0.0-0.6); Eosinophils % 0.6 %; Hematocrit 32.4 % (35.3-44.9); Hemoglobin 10.7 g/dL (11.5-15.4); Immature Granulocytes % 1.2 % (0-4); Lymphocytes # 1.5 K/mcL (0.6-4.6); Lymphocytes % 14.6 %; Mean Corpuscular Hemoglobin 29.6 pg (28.0-33.3); Mean Corpuscular Volume 89.5 fL (83.0-100.0); Mean Platelet Volume 10.7 fL (9.4-12.4); Monocytes # 1.2 K/mcL (0.0-1.3); Monocytes % 11.3 %; Neutrophils # 7.4 K/mcL (1.6-8.9); Platelet Count 178 K/mcL (140-400); Red Blood Count 3.62 M/mcL (3.82-4.97); Red Cell Distribution Width 13.9 % (11.5-14.5); Segmented Neutrophils % 72.1 %
[2018-01-13 03:46] LABS: BUN/Creatinine Ratio 29 (6-26); Blood Urea Nitrogen 21 mg/dL (8-23); Calcium 8.4 mg/dL (8.6-10.3); Carbon Dioxide 22 mEq/L (23-29); Chloride 110 mEq/L (98-107); Glucose 121 mg/dL (70-105); Osmolality,Calculated 290 (280-300); Potassium 3.4 mEq/L (3.5-5.1); Sodium 138 mEq/L (136-145); eGFR For African Americans > 60 (> 60); eGFR For Non-African Americans > 60 (> 60)
[2018-01-13 07:41] VITALS: BP 125/58
[2018-01-13] MEDS ORDERED: Potassium Chloride Elixir 20 MEQ/15 ML UDC PO ONE (11:08)
[2018-01-13] MEDS ORDERED: levoFLOXacin 750 MG TABLET PO SCH (11:15)
--- NOTE | 2018-01-13 11:27 | Urology Progress Note ---
Date of Encounter: 01/13/18 Time of Encounter: 11:25 - Assessment and Plan (1) Acute kidney injury Current Visit: Yes Status: Resolved (2) Sepsis Current Visit: Yes Status: Acute Qualifiers: Sepsis type: Escherichia coli Qualified Code(s): A41.51 - Sepsis due to Escherichia coli [E. coli] (3) Ureteral stone Current Visit: Yes Status: Acute Assessment and plan: pt is improving from a sepsis standpoint. states she is still having pain in right lower abd to flank. I suspect this is stent discomfort. no repeat imaging at this time. if continues and prevents discharge will repeat CT scan with IV contrast to rule out abscess or other issues. Progress Note Subjective: feels better, still having pain Objective Initial Vital Signs Temp Pulse Resp BP Pulse Ox 98.4 F 102 18 92/63 94 01/10/18 12:33 01/10/18 12:33 01/10/18 12:33 01/10/18 12:33 01/10/18 12:33 - General physical appearance Present: no distress - Abdomen Present: soft - Labs 01/13/18 02:27 01/13/18 02:27 Diabetes panel 01/13/18 Range/Units 02:27 Sodium 138 (136-145) mEq/L Potassium 3.4 L (3.5-5.1) mEq/L Chloride 110 H (98-107) mEq/L Carbon Dioxide 22 L (23-29) mEq/L BUN 21 (8-23) mg/dL Creatinine 0.72 (0.60-1.20) mg/dL Glucose 121 H (70-105) mg/dL Calcium 8.4 L (8.6-10.3) mg/dL Calcium panel 01/13/18 Range/Units 02:27 Calcium 8.4 L (8.6-10.3) mg/dL Pituitary panel 01/13/18 Range/Units 02:27 Sodium 138 (136-145) mEq/L Potassium 3.4 L (3.5-5.1) mEq/L Chloride 110 H (98-107) mEq/L Carbon Dioxide 22 L (23-29) mEq/L BUN 21 (8-23) mg/dL Creatinine 0.72 (0.60-1.20) mg/dL Glucose 121 H (70-105) mg/dL Calcium 8.4 L (8.6-10.3) mg/dL Adrenal panel 01/13/18 Range/Units 02:27 Sodium 138 (136-145) mEq/L Potassium 3.4 L (3.5-5.1) mEq/L Chloride 110 H (98-107) mEq/L Carbon Dioxide 22 L (23-29) mEq/L BUN 21 (8-23) mg/dL Creatinine 0.72 (0.60-1.20) mg/dL Glucose 121 H (70-105) mg/dL Calcium 8.4 L (8.6-10.3) mg/dL - VTE Documentation of Mechanical Device: Intermittent pneumatic compression device Consult Discharge Plan - Plan Referrals: Radha Nguyen CNP [Primary Care Provider] - 01/23/18 2:15 pm (Please be at office at 2:00 pm)
--- NOTE | 2018-01-13 11:57 | Discharge Summary ---
- NOTES TO OUTPATIENT PROVIDER Notes to Outpatient Provider: On antibiotics for bacteremia/UTI/ureteral stone; outpatient Urology f/up for stone extraction; Date of Encounter: 01/13/18 Time of Encounter: 11:56 - Discharge Diagnosis (1) Bacteremia due to Escherichia coli Priority: Primary Status: Acute (2) Acute kidney injury Priority: Primary Status: Resolved (3) Elevated troponin Priority: Primary Status: Acute (4) Sepsis Priority: Primary Status: Acute Qualifiers: Sepsis type: Escherichia coli Qualified Code(s): A41.51 - Sepsis due to Escherichia coli [E. coli] (5) UTI (urinary tract infection) Priority: Primary Status: Acute Qualifiers: Urinary tract infection type: site unspecified Hematuria presence: with hematuria Qualified Code(s): N39.0 - Urinary tract infection, site not specified; R31.9 - Hematuria, unspecified; R31.9 - Hematuria, unspecified (6) Ureteral stone Priority: Primary Status: Acute (7) Tobacco abuse Priority: Secondary Status: Chronic Hospital course: Ms. Nguyen is a 62 year old female with history of renal stones, who was admitted with right-sided flank and groin pain along with fever and chills. Patient was noted to have sepsis from possible UTI, she was started on IV antibiotics and IV hydration. CT abdomen/pelvis showed moderate right hydronephrosis with multiple stones up to 9 mm obstructing the proximal right ureter. Urology was consulted and patient received right-sided ureteral stent. 3 out of 4 peripheral blood cultures drawn on the same day grew pansensitive Escherichia coli. Urine culture shows mixed bacterial growth. Patient significantly improved during her stay with improved fever and leukocytosis. She is recommended to follow up with urology for outpatient stone extraction, she is medically stable for discharge on oral antibiotics. Patient also had acute kidney injury due to ureterolithiasis and sepsis, which has resolved with IV hydration and antibiotics. Discharge discussed with: patient - Time Spent with Patient Total time spent providing and/or coordinating discharge services: Greater than 30 minutes (45 min) - Discharge Medications Prescriptions: OxyCODONE/APAP 5/325 [Percocet 5/325 MG] 1 each PO Q6HR PRN 5 Days #5 tablet PRN Reason: Pain levoFLOXacin [Levaquin] 750 mg PO DAILY #11 tablet Home Medications: Pravastatin Sodium [Pravachol] 20 mg PO HS 04/18/18 [History] Bisacodyl [Dulcolax] 5 mg PO DAILY PRN tablet 01/13/18 [Rx] Docusate [Colace] 100 mg PO BID capsule 01/13/18 [Rx] OxyCODONE/APAP 5/325 [Percocet 5/325 MG] 1 each PO Q6HR PRN 5 Days #5 tablet [Rx] levoFLOXacin [Levaquin] 750 mg PO DAILY #11 tablet 01/13/18 [Rx] Allergies/Adverse Reactions: 3 Allergy/AdvReac Type Severity Reaction Status Date / Time No Known Allergies Allergy Verified 01/10/18 17:32 Date of admission: 01/10/18 20:15 Primary care physician: Gerson Dubois Discharging clinician: Anahy Mallory Anticipated date of discharge: 01/13/18 - Constitutional Vitals: Temp Pulse Resp BP Pulse Ox 98 F 70 16 125/58 97 01/13/18 07:38 01/13/18 07:38 01/13/18 07:38 01/13/18 07:38 01/13/18 07:38 General appearance: Present: A&O X 3, answers questions appropriately - Cardiovascular Cardiovascular exam: Present: RRR, +S1, +S2. Absent: diastolic murmur, gallop, rubs, systolic murmur - Patient Status Disposition: Home, Self-Care Condition: Good Functional capacity at discharge: independent ambulation Overall status at discharge: patient is progressing back to baseline - Discharge Instructions Follow Up With: Radha Nguyen, [facility] [Primary Care Provider] - 01/23/18 2:15 pm (Please be at office at 2:00 pm) Additional Instructions: F/up with -Urology as scheduled; his Office will call with appointment ; - Diet and Activity Activity: resume usual activities as tolerated Diet: low fat, low cholesterol - VTE Documentation of Mechanical Device: Intermittent pneumatic compression device
== END 2018-01-13 17:00 | disposition home or self-care (01) | DRG 872 ==
LOC: 3ANU 12:27 → EMEROO 12:27 → 3ANU 18:09 → EMEROO 18:23 → 2NNU 20:14 → SUATTDRO 20:15 → 2NENU 01-12 15:53
PROVIDERS: ADMIT Nurse Practitioner; ATTEND Internal Medicine